=== PATIENT | female | born 1965 | race Caucasian/White ===

== ENCOUNTER 2022-09-26 13:20 | Emergency (ER) | payer SELFPAY ==
[~2022-09-26] VITALS: Ht 157.5 cm; Wt 72.6 kg
--- NOTE | 2022-09-26 14:12 | NUR ---
AT BEDSIDE FOR EVAL.
[2022-09-26] MEDS ORDERED: diphenhydrAMINE 50 MG CAPSULE PO ONE (14:30)
[2022-09-26 14:41] LABS: MEAN CORPUSCULAR HEMOGLOBIN 30.3 uug (24.7-32.8); MEAN CORPUSCULAR VOLUME 91.2 fL (75.5-95.3); PLATELET COUNT (AUTO) 369 K/uL (179-408)
[2022-09-26 14:48] LABS: CREATININE 0.6 mg/dL (0.6-1.3); POTASSIUM 3.5 mmol/L (3.5-5.1)
[2022-09-26] MEDS ORDERED: diphenhydrAMINE 25 MG CAP PO ONE (14:48)
--- NOTE | 2022-09-26 14:53 | NUR ---
Took 2 capsules of 25mg from the Pyxis. Only gave 25mg instead of 50mg d/t pt's self-administration of Benadryl 50mg 2hrs ago. made aware.
[2022-09-26 14:54] LABS: BILIRUBIN,TOTAL 0.4 mg/dL (0.2-1.0)
[2022-09-26] MEDS ORDERED: DEXAMETHASONE SOD PHOSPHATE 4 MG INJ IM ONE (16:15)
[2022-09-26] MEDS ORDERED: DEXAMETHASONE SOD PHOSPHATE 4 MG INJ ONE (16:19)
[2022-09-26] MEDS ORDERED: PRED20TA PO (17:12)
[2022-09-26] MEDS ORDERED: DIPH-3 PO (17:12)
--- NOTE | 2022-09-26 17:30 | NUR ---
Patient discharged to home in stable condition. Written and verbal after care instructions given. Patient verbalizes understanding of instructions. Stressed follow up or return to ER for worsening s/s.
[2022-09-26 17:31] VITALS: BP 118/88
== END 2022-09-26 17:37 | disposition home or self-care (01) ==
LOC: ER 13:20
DX: R21 Rash and other nonspecific skin eruption (principal); L50.9 Urticaria, unspecified
CPT/HCPCS: 99283; 80053; 85025; 36415; 96372; Q0163; J1100; A4663